=== PATIENT | male | born 1955 | race Caucasian/White ===

== ENCOUNTER 2020-03-06 07:47 | Day surgery (SDC) | payer MEDICARE, OTHER ==
[2020-03-04 10:41] VITALS: BMI 29.9
[~2020-03-06 07:47] MED LIST: LACTATED RINGERS 1,000 ML IV SCH
--- NOTE | 2020-03-06 08:15 | P.GSHP ---
History of Present Illness H&P Date: 03/06/20 Chief Complaint: History of colon polyps 64-year-old male presents today for for colonoscopy. Patient has history of colon polyps. His last colonoscopy the prostate 6 years ago. Past Medical History Past Medical History: Diabetes Mellitus, GERD/Reflux, Hyperlipidemia, Hypertension, Osteoarthritis (OA) Additional Past Medical History / Comment(s): MIGRAINES, History of Any Multi-Drug Resistant Organisms: None Reported Past Surgical History: Tonsillectomy Additional Past Surgical History / Comment(s): colonoscopy Past Anesthesia/Blood Transfusion Reactions: No Reported Reaction Smoking Status: Former smoker - Past Family History Brother(s) Family Medical History: Deep Vein Thrombosis (DVT) Medications and Allergies Home Medications Medication Instructions Recorded Confirmed Type Ascorbic Acid [Vitamin C] 500 mg PO DAILY 02/14/20 03/04/20 History Atorvastatin Calcium [Lipitor] 10 mg PO DAILY 02/14/20 03/04/20 History Omeprazole 20 mg PO DAILY 02/14/20 03/04/20 History Vitamin B Complex 1 each PO DAILY 02/14/20 03/04/20 History Vitamin E 100 unit PO DAILY 02/14/20 03/04/20 History Zinc Gluconate [Zinc] 50 mg PO DAILY 02/14/20 03/04/20 History glipiZIDE [Glucotrol] 5 mg PO AC-BRKFST 02/14/20 03/04/20 History metFORMIN HCL [Glucophage] 500 mg PO BID 02/14/20 03/04/20 History Ibuprofen 200 mg PO Q8H PRN 03/04/20 03/04/20 History Lisinopril [Zestril] 10 mg PO HS 03/04/20 03/04/20 History Allergies Allergy/AdvReac Type Severity Reaction Status Date / Time No Known Allergies Allergy Verified 03/04/20 10:30 Surgical - Exam - General well developed, well nourished - Eyes PERRL - ENT normal pinna - Neck no masses - Respiratory normal expansion - Cardiovascular Rhythm: regular - Abdomen Abdomen: soft, non tender Assessment and Plan Assessment: History: Polyps. We'll perform colonoscopy.
[2020-03-06] MEDS ORDERED: PROPOFOL 10 MG/ML 20 ML VIAL IV ONE (08:21)
[2020-03-06] MEDS ORDERED: LIDOCAINE 1% INJ 10MG/ML (20 ML MDV) ONE (08:21)
[2020-03-06] MEDS ORDERED: GLYCOPYRROLATE 0.2 MG/ML 2 ML VIAL ONE (08:21)
--- NOTE | 2020-03-06 08:37 | P.OP ---
Date of Procedure: 03/06/20 Preoperative Diagnosis: Screening colonoscopy Postoperative Diagnosis: Diverticulosis Procedure(s) Performed: Colonoscopy Anesthesia: MAC Surgeon: Gopi Garza Pathology: none sent Condition: stable Disposition: PACU Description of Procedure: The patient's placed on the endoscopy table in the lateral position. She received IV sedation. Digital rectal exam was performed which revealed no abnormalities. The flexible colonoscope was then placed patient anus and passed throughout the entire colon. The ileocecal valve was visually's. The cecum, ascending and transverse colon appeared normal. In the descending; there is moderate diverticular changes. The scope was then brought back the rectum and this appeared normal. Scope withdrawn for patient.
[2020-03-06 15:27] LABS: Glucose,Whole Blood 132 mg/dL (75-99)
[2020-03-07 08:41] VITALS: BP 137/71; PULSE 62; RESP 16; TEMP 98.5
== END 2020-03-06 09:50 | disposition home or self-care (01) ==
LOC: ORWHC2ENDO 07:47
PROVIDERS: ATTEND Surgery
DX: Z12.11 Encounter for screening for malignant neoplasm of colon (principal); K57.30 Diverticulosis of large intestine without perforation or abscess without bleeding; Z86.010 Personal history of colon polyps; I10 Essential (primary) hypertension; E11.9 Type 2 diabetes mellitus without complications; G43.909 Migraine, unspecified, not intractable, without status migrainosus; K21.9 Gastro-esophageal reflux disease without esophagitis; E78.5 Hyperlipidemia, unspecified; M19.90 Unspecified osteoarthritis, unspecified site; Z87.891 Personal history of nicotine dependence; Z79.84 Long term (current) use of oral hypoglycemic drugs; Z79.899 Other long term (current) drug therapy; Z79.1 Long term (current) use of non-steroidal anti-inflammatories (NSAID); Z90.89 Acquired absence of other organs; Z98.890 Other specified postprocedural states; Z82.49 Family history of ischemic heart disease and other diseases of the circulatory system
CPT/HCPCS: G0105; J2001; J2704; 45378

== ENCOUNTER 2023-12-26 18:09 | Observation (INO) | payer MEDICARE ==
--- NOTE | 2023-12-26 18:59 | ED ---
General Adult HPI - General Source: patient Mode of arrival: ambulatory Limitations: no limitations <Oneil Trejo - Last Filed: 12/26/23 18:59> <Jennifer Lozano - Last Filed: 12/31/23 08:40> - General Chief complaint: GI Bleed Stated complaint: GI Bleed Time Seen by Provider: 12/26/23 18:58 - History of Present Illness Initial comments: 68-year-old male presents to the ED with a chief complaint of rectal bleeding. Patient reports that this has been ongoing for the last 3 days. No rectal pain. No abdominal pain. Patient not on blood thinners. For that she was seen at [facility] had a CT abdomen pelvis completed which revealed no evidence of acute finding. Patient however left AMA prior to completing workup and is presenting here for further evaluation. (Oneil Trejo) 68-year-old male presents emergency department for rectal bleeding pain. States it has been going on for the past 3 days. Originally it was bright red in coloration and now has become dark. He has no abdominal or rectal pain. He does not take any blood thinners. No history of similar in the past. He has had a colonoscopy. He does admit to taking NSAIDs several times per week. No alcohol use. He went into [facility] this morning for laboratory studies and a CT were performed. Patient then left AMA as he was told by [facility] that he had to be transferred. Patient wanted to go by private vehicle. He denies any lightheadedness. No other alleviating, precipitating or modifying factors (Jennifer Lozano) - Related Data Home Medications Medication Instructions Recorded Confirmed glipiZIDE [Glucotrol] 5 mg PO AC-BRKFST 02/14/20 12/27/23 lisinopriL [Zestril] 10 mg PO HS 03/04/20 12/27/23 Atorvastatin [Lipitor] 20 mg PO DAILY 12/27/23 12/27/23 Triamcinolone 0.1% Cream [Kenalog 1 applic TOPICAL BID 12/27/23 12/27/23 0.1% Cream] metFORMIN HCL ER [Glucophage XR] 500 mg PO BID 12/27/23 12/27/23 Allergies Allergy/AdvReac Type Severity Reaction Status Date / Time No Known Allergies Allergy Verified 12/27/23 08:13 Review of Systems ROS Other: All systems not noted in ROS Statement are negative. <Oneil Trejo - Last Filed: 12/26/23 18:59> ROS Other: All systems not noted in ROS Statement are negative. <Jennifer Lozano - Last Filed: 12/31/23 08:40> ROS Statement: Those systems with pertinent positive or pertinent negative responses have been documented in the HPI. Past Medical History Past Medical History: Diabetes Mellitus, GERD/Reflux, Hyperlipidemia, Hypertension, Osteoarthritis (OA) Additional Past Medical History / Comment(s): MIGRAINES, History of Any Multi-Drug Resistant Organisms: None Reported Past Surgical History: Tonsillectomy Additional Past Surgical History / Comment(s): colonoscopy Past Anesthesia/Blood Transfusion Reactions: No Reported Reaction Past Psychological History: No Psychological Hx Reported Smoking Status: Never smoker Past Alcohol Use History: Rare Past Drug Use History: Marijuana - Past Family History Brother(s) Family Medical History: Deep Vein Thrombosis (DVT) <Oneil Trejo - Last Filed: 12/26/23 18:59> General Exam Limitations: no limitations <Oneil Trejo - Last Filed: 12/26/23 18:59> General appearance: alert, in no apparent distress Head exam: Present: atraumatic, normocephalic, normal inspection Eye exam: Present: normal appearance, PERRL, EOMI. Absent: scleral icterus, conjunctival injection, periorbital swelling ENT exam: Present: normal exam, mucous membranes moist Neck exam: Present: normal inspection. Absent: tenderness, meningismus, lympha denopathy Respiratory exam: Present: normal lung sounds bilaterally. Absent: respiratory distress, wheezes, rales, rhonchi, stridor Cardiovascular Exam: Present: regular rate, normal rhythm, normal heart sounds. Absent: systolic murmur, diastolic murmur, rubs, gallop, clicks GI/Abdominal exam: Present: soft, normal bowel sounds. Absent: distended, tenderness, guarding, rebound, rigid Extremities exam: Present: normal inspection, full ROM, normal capillary refill. Absent: tenderness, pedal edema, joint swelling, calf tenderness Back exam: Present: normal inspection Neurological exam: Present: alert, oriented X3, CN II-XII intact Psychiatric exam: Present: normal affect, normal mood Skin exam: Present: warm, dry, intact, normal color. Absent: rash <Jennifer Lozano - Last Filed: 12/31/23 08:40> - General Exam Comments Initial Comments: Visual Physical Exam Vital signs reviewed General: Well-appearing, nontoxic, no acute distress. Head: Normocephalic, atraumatic Eyes: PERRLA, EOMI ENT: Airway patent Chest: Nonlabored breathing Skin: No visual rash, normal skin tone Neuro: Alert and oriented 3 Musculoskeletal: No gross abnormalities (Oneil Trejo) Course Vital Signs 12/26/23 12/27/23 12/27/23 18:36 00:21 01:31 Temperature 97.8 F 98.2 F Pulse Rate 101 H 76 77 Pulse Rate [ Green Coffee Blender ] Respiratory 18 18 15 Rate Blood Pressure 165/80 187/101 155/90 Blood Pressure [Left Arm] Blood Pressure [Right Arm] O2 Sat by Pulse 98 96 97 Oximetry 12/27/23 12/27/23 12/27/23 02:46 09:19 14:43 Temperature 98.2 F 98.0 F Pulse Rate 72 Pulse Rate [ 81 83 Green Coffee Blender ] Respiratory 15 15 16 Rate Blood Pressure 142/106 Blood Pressure [Left Arm] Blood Pressure 169/90 161/101 [Right Arm] O2 Sat by Pulse 97 96 Oximetry 12/27/23 12/27/23 14:50 16:10 Temperature Pulse Rate Pulse Rate [ Green Coffee Blender ] Respiratory Rate Blood Pressure Blood Pressure 144/84 148/86 [Left Arm] Blood Pressure 151/82 [Right Arm] O2 Sat by Pulse Oximetry Medical Decision Making <Oneil Trejo - Last Filed: 12/26/23 18:59> - Lab Data Result diagrams: 12/28/23 05:22 12/28/23 05:22 <Jennifer Lozano - Last Filed: 12/31/23 08:40> - Medical Decision Making Quicknote portion performed. Signed Oneil Trejo PA-C (Oneil Trejo) Was pt. sent in by a medical professional or institution ([facility], GAUGE MAKER APPRENTICE, urgent care, hospital, or [place] health care facility...) When possible be specific @ -Patient was seen and evaluated at [facility]. It was then recom mended that the patient be seen at a different facility Did you speak to anyone other than the patient for history (EMS, parent, family, police, friend...)? What history was obtained from this source @ -No Did you review nursing and triage notes (agree or disagree)? Why? @ -I reviewed and agree with nursing and triage notes Were old charts reviewed (outside hosp., previous admission, EMS record, old EKG, old radiological studies, urgent care reports/EKG's, [place] health care facility records)? Report findings @ -I reviewed the paperwork that the patient brought with him from [facility] Differential Diagnosis (chest pain, altered mental status, abdominal pain women, abdominal pain men, vaginal bleeding, weakness, fever, dyspnea, syncope, headache, dizziness, GI bleed, back pain, seizure, CVA, palpatations, mental health, musculoskeletal)? @ -Differential GI Bleed: Esophageal varices, aortoenteric fistula, Josie-White, gastritis, peptic ulcer disease, diverticulosis, inflammatory bowel disease, hemorrhoids, fissure, colitis, malignancy, Meckels diverticulum, this is not meant to be an all- inclusive list. EKG interpreted by me (3pts min.). @ -Not done X-rays interpreted by me (1pt min.). @ -None done CT interpreted by me (1pt min.). @ -None done U/S interpreted by me (1pt. min.). @ -None done What testing was considered but not performed or refused? (CT, X-rays, U/S, labs)? Why? @ -None What meds were considered but not given or refused? Why? @ -None Did you discuss the management of the patient with other professionals (professionals i.e. , PA, GAUGE MAKER APPRENTICE, lab, RT, psych nurse, case management social worker, motivational speaker, teacher, officer captain, rn case mgr)? Give summary @ -Spoke with Brittaney from [facility] Was smoking cessation discussed for >3mins.? @ -No Was critical care preformed (if so, how long)? @ -No Were there social determinants of health that impacted care today? How? (Homele ssness, low income, unemployed, alcoholism, drug addiction, transportation, low edu. Level, literacy, decrease access to med. care, [place] [facility] [place], rehab)? @ -No Was there de-escalation of care discussed even if they declined (Discuss DNR or withdrawal of care, Hospice)? DNR status @ -No What co-morbidities impacted this encounter? (DM, HTN, Smoking, COPD, CAD, Cancer, CVA, ARF, Chemo, Hep., AIDS, mental health diagnosis, sleep apnea, morbid obesity)? @ -None Was patient admitted / discharged? Hospital course, mention meds given and route, prescriptions, significant lab abnormalities, going to OR and other pertinent info. @ -Upon arrival patient was seen and evaluated in room 26. Thorough history and physical exam was performed. I did review patient's transfer paperwork. He was occult positive there. CT demonstrated colonic diverticulosis. Patient presents to our emergency department for GI consult. He will be admitted to [facility]. Spoke with Brittaney who agreed to admission. GI will be consulted Undiagnosed new problem with uncertain prognosis? @ -Yes Drug Therapy requiring intensive monitoring for toxicity (Heparin, Nitro, Insulin, Cardizem)? @ -No Were any procedures done? @ -No Diagnosis/symptom? @ -Acute hematochezia, suspected lower GI bleed, colonic diverticulosis Acute, or Chronic, or Acute on Chronic? @ -Acute Uncomplicated (without systemic symptoms) or Complicated (systemic symptoms)? @ -Complicated Side effects of treatment? @ -No Exacerbation, Progression, or Severe Exacerbation? @ -No Poses a threat to life or bodily function? How? (Chest pain, USA, NM, pneumonia, PE, COPD, DKA, ARF, appy, cholecystitis, CVA, Diverticulitis, Homicidal, Suicidal, threat to staff... and all critical care pts) @ -No (Jennifer Lozano) Disposition <Oneil Trejo - Last Filed: 12/26/23 18:59> Is patient prescribed a controlled substance at d/c from ED?: No Time of Disposition: 00:13 <Jennifer Lozano - Last Filed: 12/31/23 08:40> Clinical Impression: Hematochezia, GI bleed Disposition: ADMITTED IP TO THIS HOSP
[2023-12-27] MEDS ORDERED: NALOXONE 0.4 MG/ML 1 ML VIAL IV PRN (00:14)
[2023-12-27 00:46] LABS: Basophils # (A) 0.2 k/uL (0-0.2); Basophils % (A) 1 %; Eosinophils # (A) 0.3 k/uL (0-0.7); Eosinophils % (A) 2 %; HCT 38.9 % (39.0-53.0); HGB 12.9 gm/dL (13.0-17.5); Lymphocytes # (A) 4.5 k/uL (1.0-4.8); Lymphocytes % (A) 33 %; MCH 28.7 pg (25.0-35.0); MCHC 33.1 g/dL (31.0-37.0); MCV 86.4 fL (80.0-100.0); Mean Platelet Volume 10.1; Monocytes # (A) 0.7 k/uL (0-1.0); Monocytes % (A) 5 %; Neutrophils # (A) 7.6 k/uL (1.3-7.7); Neutrophils % (A) 56 %; Platelet Count 279 k/uL (150-450); RDW 13.2 % (11.5-15.5); WBC 13.5 k/uL (3.8-10.6)
[2023-12-27 01:02] LABS: ALT 38 U/L (4-49); AST 54 U/L (17-59); African American GFR (CKD) >90 (>60 ml/min/1.73 sqM); Albumin 4.8 g/dL (3.5-5.0); Alkaline Phosphatase 37 U/L (38-126); Anion Gap 9 mmol/L; Blood Urea Nitrogen 17 mg/dL (9-20); Calcium 9.5 mg/dL (8.4-10.2); Carbon Dioxide 22 mmol/L (22-30); Chloride 104 mmol/L (98-107); Glucose 143 mg/dL (74-99); Non-African American GFR(CKD) >90 (>60 ml/min/1.73 sqM); Sodium 135 mmol/L (137-145); Total Bilirubin 1.1 mg/dL (0.2-1.3); Total Protein 7.8 g/dL (6.3-8.2)
[2023-12-27 01:10] LABS: Potassium 5.7 mmol/L (3.5-5.1)
[2023-12-27] MEDS ORDERED: DEXTROSE 50% SYRINGE 50 ML IVP PRN ×2 (09:01)
[2023-12-27] MEDS: ATORVASTATIN 20 MG TAB PO SCH (09:22)
[2023-12-27] MEDS: SODIUM ZIRCONIUM CYCLOSILICATE 10 GM PACKET PO SCH (09:23)
[2023-12-27] MEDS: TRIAMCINOLONE 0.1% CREAM 80 GM TUBE TOPICAL SCH (09:25)
[2023-12-27 12:06] LABS: Glucose,Whole Blood 166 mg/dL (70-110)
[2023-12-27] MEDS: INSULIN ASPART (NovoLOG) 100 UNIT/ML VIAL SQ SCH (12:14)
--- NOTE | 2023-12-27 15:49 | P.HPIM ---
History of Present Illness H&P Date: 12/27/23 Chief Complaint: Blood per rectum This is a 68-year-old patient, follows Dr. Brambila. Chronic stable medical conditions include diabetes, GERD, hypertension, hyperlipidemia, osteoarthritis. 4 days ago there is on Tuesday patient had a piece 4 episodes of eric red blood to her rectum. Not really mixed with stool. The following day on Tuesday patient had to 3 episodes. Then on Tuesday also had to 3 episodes. Yesterday had 1 more episode. No abdominal pain. No nausea vomiting. No fever. Patient had prior colonoscopy showing diverticulosis. Decided to come in. Does feel slightly tired. Review of systems: GEN.: Tired EYES: None HEENT: None NECK: None RESPIRATORY: None CARDIOVASCULAR: None GASTROINTESTINAL: None as above Genitourinary: None MUSCULOSKELETAL: Pain. LYMPHATICS: None HEMATOLOGICAL: None PSYCHIATRY: None NEUROLOGICAL: None Social history: No alcohol. Lives with [employer]. 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 Patient smoked for 30 years stopped in 1996. Occasional marijuana use Physical examination: VITAL SIGNS: 98, 81, 15, 169/90, 97% room air GENERAL: BMI 30, reclining bed awake not in distress. EYES: Pupils equal. Conjunctiva abraham l. HEENT: External appearance of nose and ears normal, oral cavity grossly normal. NECK: JVD not raised; masses not palpable. HEART: First and second heart sounds are normal; no edema. LUNGS: Respiratory rate normal; clear to auscultation. ABDOMEN: Soft, nontender, liver spleen not palpable, no masses palpable. PSYCH: Alert and oriented x3; mood and affect abraham l. MUSCULOSKELETAL:No Clubbing/cyanosis;muscles-grossly intact. OA NEUROLOGICAL: Cranial nerves grossly intact; no facial asymmetry, power and sensation grossly intact. LYMPHATICS: No lymph nodes palpable in the axilla and neck INVESTIGATIONS, reviewed in the clinical context: December 27, 2023: White count 13.5 hemoglobin 12.9 platelets 279 sodium 135 potassium 5.7 BUN 17 creatinine 0.77 Assessment plan: --Acute lower GI bleed to recurrent for last 4 days. Multiple episodes of fresh red blood. Likely diverticular in nature. Oftentimes these are self-limiting though frequency and amount can vary. Given that patient's had several episodes need to be followed closely both for hemoglobin and any and hemodynamic insta bility. Colonoscopy by Dr Garza in 2019 had shown diverticulosis Follow H&H. Consult GI. Clear liquid diet -Diabetes mellitus type 2 on oral hypoglycemic Hold Glucotrol and Glucophage. Follow Accu-Cheks. Sliding scale. -Essential hypertension Hold lisinopril for now because of hyperkalemia -Hyperlipidemia Lipitor 20 mg a day -Hyperkalemia. Hold lisinopril Lokelma. Low potassium diet -Full code Care was discussed with the patient. Past Medical History Past Medical History: Diabetes Mellitus, GERD/Reflux, Hyperlipidemia, Hyperten tiago, Osteoarthritis (OA) Additional Past Medical History / Comment(s): MIGRAINES, History of Any Multi-Drug Resistant Organisms: None Reported Past Surgical History: Tonsillectomy Additional Past Surgical History / Comment(s): colonoscopy Past Anesthesia/Blood Transfusion Reactions: No Reported Reaction Past Psychological History: No Psychological Hx Reported Smoking Status: Never smoker Past Alcohol Use History: Rare Past Drug Use History: Marijuana - Past Family History Brother(s) Family Medical History: Deep Vein Thrombosis (DVT) Medications and Allergies Home Medications Medication Instructions Recorded Confirmed Type glipiZIDE [Glucotrol] 5 mg PO AC-BRKFST 02/14/20 12/27/23 History lisinopriL [Zestril] 10 mg PO HS 03/04/20 12/27/23 History Atorvastatin [Lipitor] 20 mg PO DAILY 12/27/23 12/27/23 History Triamcinolone 0.1% Cream [Kenalog 1 applic TOPICAL BID 12/27/23 12/27/23 History 0.1% Cream] metFORMIN HCL ER [Glucophage XR] 500 mg PO BID 12/27/23 12/27/23 History Allergies Allergy/AdvReac Type Severity Reaction Status Date / Time No Known Allergies Allergy Verified 12/27/23 08:13 Physical Exam Vitals: Vital Signs Temp Pulse Pulse Resp BP BP BP 12/27/23 14:50 144/84 12/27/23 14:43 83 16 161/101 12/27/23 09:19 98.0 F 81 15 169/90 12/27/23 02:46 98.2 F 72 15 142/106 12/27/23 01:31 77 15 155/90 12/27/23 00:21 98.2 F 76 18 187/101 12/26/23 18:36 97.8 F 101 H 18 165/80 Pulse Ox 12/27/23 14:50 12/27/23 14:43 96 12/27/23 09:19 97 12/27/23 02:46 12/27/23 01:31 97 12/27/23 00:21 96 12/26/23 18:36 98 Results CBC & Chem 7: 12/27/23 00:21 12/27/23 00:21 Labs: Abnormal Lab Results - Last 24 Hours (Table) 12/27/23 12/27/23 12/27/23 Range/Units 00:21 00:21 12:04 WBC 13.5 H (3.8-10.6) k/uL Hgb 12.9 L (13.0-17.5) gm/dL Hct 38.9 L (39.0-53.0) % Sodium 135 L (137-145) mmol/L Potassium 5.7 H (3.5-5.1) mmol/L Glucose 143 H (74-99) mg/dL POC Glucose (mg/dL) 166 H (70-110) mg/dL Alkaline Phosphatase 37 L (38-126) U/L
--- NOTE | 2023-12-27 16:31 | P.CONS ---
History of Present Illness - Reason for Consult Consult date: 12/27/23 Hematochezia Requesting physician: Jennifer Lozano - Chief Complaint Rectal bleeding - History of Present Illness This is a pleasant 68-year-old male who presented to the emergency department yesterday evening with concerns of rectal bleeding. Patient had initially gone to [facility] and was then sent here for further evaluation. He had a CT of the abdomen and pelvis that reportedly showed no acute findings. States that he has had bright red blood mixed with his stool since Tuesday. States he had 3- 4 bowel movements Tuesday 2-3 Tuesday and they have been decreasing since. States that initially he had bright red blood mixed in with his stool which he states his stool was formed. He denies any pain in the rectum or abdominal pain associated with the rectal bleeding. States that he has been in proving and did not have a bowel movement since yesterday. Which the bleeding was turning a little bit darker. He denies any nausea or vomiting. He denies any use of anticoagulation. Last colonoscopy was in [address] Garza with findings of diverticulosis however he did have a colonoscopy with Dr. Porras in 2013 reporting multiple colon polyps status post polypectomy with biopsy showing tubular adenoma with recommendation for follow-up within 6 months to a year. Patient states he had not followed up at that time. Hemoglobin is stable at 12.9. Review of Systems REVIEW OF SYSTEMS: CARDIOPULMONARY: No chest pain or shortness of breath. Gastrointestinal: No abdominal pain or rectal pain. No nausea or vomiting. No hematemesis, coffee-ground emesis. Patient reports bright red bloody bowel movements. Bleeding only with bowel movement. GENITOURINARY: No dysuria or hematuria. MUSCULOSKELETAL: Reports normal range of motion. SKIN: No rashes. No jaundice. ENDOCRINE: No chills, fevers. No excessive weight gain or loss. No polydipsia or polyuria. PSYCHIATRIC: Unremarkable. NEUROLOGY: No change in mental status. Denies dizziness, headache. ENT: Vision unremarkable. CONSTITUTIONAL: No recent weight loss. No fever, chills, night sweats. Past Medical History Past Medical History: Diabetes Mellitus, GERD/Reflux, Hyperlipidemia, Hypertension, Osteoarthritis (OA) Additional Past Medical History / Comment(s): MIGRAINES, History of Any Multi-Drug Resistant Organisms: None Reported Past Surgical History: Tonsillectomy Additional Past Surgical History / Comment(s): colonoscopy Past Anesthesia/Blood Transfusion Reactions: No Reported Reaction Past Psychological History: No Psychological Hx Reported Smoking Status: Never smoker Past Alcohol Use History: Rare Past Drug Use History: Marijuana - Past Family History Brother(s) Family Medical History: Deep Vein Thrombosis (DVT) Medications and Allergies Home Medications Medication Instructions Recorded Confirmed Type glipiZIDE [Glucotrol] 5 mg PO AC-BRKFST 02/14/20 12/27/23 History lisinopriL [Zestril] 10 mg PO HS 03/04/20 12/27/23 History Atorvastatin [Lipitor] 20 mg PO DAILY 12/27/23 12/27/23 History Triamcinolone 0.1% Cream [Kenalog 1 applic TOPICAL BID 12/27/23 12/27/23 History 0.1% Cream] metFORMIN HCL ER [Glucophage XR] 500 mg PO BID 12/27/23 12/27/23 History Allergies Allergy/AdvReac Type Severity Reaction Status Date / Time No Known Allergies Allergy Verified 12/27/23 08:13 Physical Exam Vitals: Vital Signs Temp Pulse Resp BP Pulse Ox 12/27/23 02:46 98.2 F 72 15 142/106 12/27/23 01:31 77 15 155/90 97 12/27/23 00:21 98.2 F 76 18 187/101 96 12/26/23 18:36 97.8 F 101 H 18 165/80 98 Intake and Output 12/26/23 12/27/23 12/27/23 22:59 06:59 14:59 Other: Weight 97.522 kg General appearance: The patient is alert, oriented, appears in no acute distress. HET: Head is normocephalic and atraumatic. Conjunctiva pink. Sclera anicteric. Neck: Supple without lymphadenopathy. Trachea midline. Heart: Regular. Lungs: Equal expansion, normal respiratory effort. Abdomen: Soft, nontender, nondistended. Skin: No rashes. No jaundice. Extremities: Normal skin color and turgor. No pedal edema. Neurological: No focal deficits. Alert and oriented x3. Results CBC & Chem 7: 12/27/23 00:21 12/27/23 00:21 Labs: Abnormal Lab Results - Last 24 Hours (Table) 12/27/23 12/27/23 Range/Units 00:21 00:21 WBC 13.5 H (3.8-10.6) k/uL Hgb 12.9 L (13.0-17.5) gm/dL Hct 38.9 L (39.0-53.0) % Sodium 135 L (137-145) mmol/L Potassium 5.7 H (3.5-5.1) mmol/L Glucose 143 H (74-99) mg/dL Alkaline Phosphatase 37 L (38-126) U/L Assessment and Plan (1) Hematochezia Narrative/Plan: 68-year-old male presenting with 4 days of bloody bowel movements. States they have been bright red mixed with his stool since Tuesday. Had 3-4 episodes Tuesday 2-3 on Tuesday and has since been slowing down. He was initially seen at an outside facility and came here for further GI evaluation. Apparently had an outside CT of the abdomen pelvis that showed no acute findings. Bleeding is not associated with any abdominal pain. He has had a history colonoscopy in 2019 with diverticulosis and previous to that colonoscopy in 2013 with multiple colon polyps status post polypectomy. Unclear etiology of hematochezia but with patient's history of colon polyps would recommend inpatient colonoscopy. Current Visit: Yes Status: Acute Code(s): K92.1 - MELENA SNOMED Code(s): 242233209 Plan: 1. Continue symptomatic and supportive care 2. Daily CBC, transfuse for hemoglobin less than 7 3. Clear liquid diet n.p.o. after midnight 4. Bowel prep this evening 5. Plan for colonoscopy tomorrow Thank you for this consultation, we will continue to follow. Dr. Denise Porras I agree with the dictator's note, documented as a scribe by Valentine Coleman.
[2023-12-27 20:40] LABS: Glucose,Whole Blood 151 mg/dL (70-110)
[2023-12-27] MEDS ORDERED: lisinopriL 10 MG TAB PO SCH (21:00)
[2023-12-27] MEDS: PEG 3350 (236 GM/BTL) + LYTES 4,000 ML BOTTLE PO ONE (21:17)
[2023-12-28 06:07] LABS: Basophils # (A) 0.1 k/uL (0-0.2); Basophils % (A) 1 %; Eosinophils # (A) 0.2 k/uL (0-0.7); Eosinophils % (A) 2 %; HCT 37.1 % (39.0-53.0); HGB 12.4 gm/dL (13.0-17.5); Lymphocytes # (A) 2.5 k/uL (1.0-4.8); Lymphocytes % (A) 26 %; MCH 28.9 pg (25.0-35.0); MCHC 33.4 g/dL (31.0-37.0); MCV 86.3 fL (80.0-100.0); Mean Platelet Volume 10.1; Monocytes # (A) 0.6 k/uL (0-1.0); Monocytes % (A) 6 %; Neutrophils # (A) 6.2 k/uL (1.3-7.7); Neutrophils % (A) 63 %; Platelet Count 226 k/uL (150-450); RDW 13.1 % (11.5-15.5); WBC 9.8 k/uL (3.8-10.6)
[2023-12-28 06:23] LABS: African American GFR (CKD) >90 (>60 ml/min/1.73 sqM); Anion Gap 9 mmol/L; Blood Urea Nitrogen 15 mg/dL (9-20); Calcium 9.5 mg/dL (8.4-10.2); Carbon Dioxide 27 mmol/L (22-30); Chloride 102 mmol/L (98-107); Glucose 168 mg/dL (74-99); Non-African American GFR(CKD) >90 (>60 ml/min/1.73 sqM); Potassium 4.2 mmol/L (3.5-5.1); Sodium 138 mmol/L (137-145)
[2023-12-28 06:31] LABS: Glucose,Whole Blood 169 mg/dL (70-110)
[2023-12-28 09:52] VITALS: RESP 18
[2023-12-28 11:51] LABS: Glucose,Whole Blood 145 mg/dL (70-110)
[2023-12-28] MEDS ORDERED: PROPOFOL 10 MG/ML 20 ML VIAL IV ONE (12:59)
[2023-12-28] MEDS ORDERED: LIDOCAINE 1% INJ 10MG/ML (20 ML MDV) ONE (12:59)
[2023-12-28] MEDS: IV FLUID CONTINUATION 1,000 ML IV ONE (13:01)
--- NOTE | 2023-12-28 13:27 | P.PCN ---
Date of Procedure: 12/28/23 Procedure(s) Performed: BRIEF HISTORY: Patient is a 68-year-old pleasant white male admitted to hospital with acute lower GI bleed. He had several episodes of bright red blood per rectum for the last 3 days duration. Hemoglobin is 12.4 g/dL. He is scheduled for colonoscopy evaluate further. PROCEDURE PERFORMED: Colonoscopy with biopsy and snare polypectomy PREOPERATIVE DIAGNOSIS: Acute lower GI bleed. IV sedation per Anesthesia. PROCEDURE: After informed consent was obtained, the patient, was brought into the endoscopy unit. IV sedation was administered by Anesthesia under continuous monitoring. Digital rectal examination was normal. Initially the Olympus CF-160 flexible video colonoscope was then inserted in the rectum, gradually advanced into the cecum without any difficulty. Careful examination was performed as the scope was gradually being withdrawn. Ileocecal valve and the appendiceal orifice were visualized and appeared normal. Prep was excellent. No active bleeding noted. Mucosa of the cecum, ascending colon, appeared normal. In the transverse colon there was a 5 mm polyp was removed by cold biopsy. Transverse colon, normal. The descending colon there was a 1 cm polyp removed by snare polypectomy. In the sigmoid colon there was a 3 mm polyp removed by snare humble ypectomy. Moderate sigmoid diverticulosis seen. Rest of the descending colon, sigmoid colon, and rectum appeared normal. Scattered sigmoid diverticulosis. Retroflexion was performed in the rectum and no lesions were seen. The patient tolerated the procedure well. IMPRESSION: 5 mm transverse colon polyp status post removal by cold biopsy. 1 cm descending colon polyp s/p snare polypectomy 3 mm sigmoid colon polyp status post cold biopsy Sigmoid diverticulosis. RECOMMENDATIONS: Findings of this examination were discussed with the patient as well is his family. Most likely had a diverticular bleed that has spontaneously resolved. He was advised to follow the biopsy results. Advance diet as tolerated. He can be discharged home today with outpatient follow-up as needed..
[2023-12-28 16:05] VITALS: BP 175/76; PULSE 90; TEMP 98
--- NOTE | 2023-12-28 20:48 | P.DS ---
Providers Date of admission: 12/27/23 00:21 Expected date of discharge: 12/28/23 Attending physician: Jeffery Rojas Consults: 12/27/23 00:14 Consult Physician Urgent Consulting Provider: Alannah Porras Consult Reason/Comments: acute hematochezia, lower gi bleed Do you want consulting provider notified?: Yes Primary care physician: [facility] Course: Chief Complaint: Blood per rectum This is a 68-year-old patient, follows Dr. Brambila. Chronic stable medical conditions include diabetes, GERD, hypertension, hyperlipidemia, osteoarthritis. 4 days ago there is on Tuesday patient had a piece 4 episodes of eric red blood to her rectum. Not really mixed with stool. The following day on Tuesday patient had to 3 episodes. Then on Tuesday also had to 3 episodes. Yesterday had 1 more episode. No abdominal pain. No nausea vomiting. No fever. Patient had prior colonoscopy showing diverticulosis. Decided to come in. Does feel s lightly tired. December 27: Patient had normal bowel movements since yesterday. Had bowel preparation yesterday. Some dark stuff came out. Then cleared up to brown stool. Underwent colonoscopy today. Some broad-based colon polyp removed. Diverticulosis noticed. Doing well otherwise. Cleared by Dr. Porras for discharge. Social history: No alcohol. Lives with [employer]. 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 Patient smoked for 30 years stopped in 1996. Occasional marijuana use Physical examination: VITAL SIGNS: 98, 90, 18, 135/79, 98% room air GENERAL: BMI 30, reclining bed awake not in distress. EYES: Pupils equal. Conjunctiva abraham l. HEENT: External appearance of nose and ears normal, oral cavity grossly normal. NECK: JVD not raised; masses not palpable. HEART: First and second heart sounds are normal; no edema. LUNGS: Respiratory rate normal; clear to auscultation. ABDOMEN: Soft, nontender, liver spleen not palpable, no masses palpable. PSYCH: Alert and oriented x3; mood and affect abraham l. MUSCULOSKELETAL:No Clubbing/cyanosis;muscles-grossly intact. OA INVESTIGATIONS, reviewed in the clinical context: December 27: White count 9.8 hemoglobin 12.4 platelets 226 potassium 4.2 creatinine 0.78 December 27, 2023: White count 13.5 hemoglobin 12.9 platelets 279 sodium 135 potassium 5.7 BUN 17 creatinine 0.77 Assessment plan: --Acute lower GI bleed to recurrent for last 4 days. Multiple episodes of fresh red blood.: Likely source colonic diverticulosis Colonoscopy by Dr Garza in 2019 had shown diverticulosis Colonoscopy by Dr. Denise Porras: Polyps removed. Diverticulosis. No active bleeding noticed. -Diabetes mellitus type 2 on oral hypoglycemic Hold Glucotrol and Glucophage. Follow Accu-Cheks. Sliding scale. -Essential hypertension -Hyperlipidemia Lipitor 20 mg a day -Hyperkalemia. Corrected -Full code Disposition: Home Past Medical History Past Medical History: Diabetes Mellitus, GERD/Reflux, Hyperlipidemia, Hypertension, Osteoarthritis (OA) Additional Past Medical History / Comment(s): MIGRAINES, History of Any Multi-Drug Resistant Organisms: None Reported Past Surgical History: Tonsillectomy Additional Past Surgical History / Comment(s): colonoscopy Past Anesthesia/Blood Transfusion Reactions: No Reported Reaction Past Psychological History: No Psychological Hx Reported Smoking Status: Never smoker Past Alcohol Use History: Rare Past Drug Use History: Marijuana Plan - Discharge Summary Discharge Rx Participant: No New Discharge Prescriptions: Continue glipiZIDE [Glucotrol] 5 mg PO AC-BRKFST lisinopriL [Zestril] 10 mg PO HS metFORMIN HCL ER [Glucophage XR] 500 mg PO BID Triamcinolone 0.1% Cream [Kenalog 0.1% Cream] 1 applic TOPICAL BID Atorvastatin [Lipitor] 20 mg PO DAILY Discharge Medication List glipiZIDE [Glucotrol] 5 mg PO AC-BRKFST 02/14/20 [History] lisinopriL [Zestril] 10 mg PO HS 03/04/20 [History] Atorvastatin [Lipitor] 20 mg PO DAILY 12/27/23 [History] Triamcinolone 0.1% Cream [Kenalog 0.1% Cream] 1 applic TOPICAL BID 12/27/23 [History] metFORMIN HCL ER [Glucophage XR] 500 mg PO BID 12/27/23 [History] Follow up Appointment(s)/Referral(s): Irasema Cabrera NPC [Family Provider] - 1-2 Days Alannah Porras MD [STAFF PHYSICIAN] - 2 Weeks Activity/Diet/Wound Care/Special Instructions: *Glucometer is at [facility] - have them deliver at discharge
== END 2023-12-28 15:40 | disposition home or self-care (01) ==
LOC: EC 18:09 → 4SSUR 12-27 00:21 → OBSVTOIN 12-27 00:21 → INTOOBSV 12-27 00:21 → 4SSUR 12-27 07:27 → UNDODISOB 12-28 15:40 → UNDODISIN 12-28 15:40
PROVIDERS: ADMIT Hospitalist; ATTEND Hospitalist
PROC: 0DBM8ZX Excision of Descending Colon, Via Natural or Artificial Opening Endoscopic, Diagnostic (ICD-10-PCS; principal; 2023-12-28 11:30)
PROC: 0DBL8ZX Excision of Transverse Colon, Via Natural or Artificial Opening Endoscopic, Diagnostic (ICD-10-PCS; principal; 2023-12-28 11:30)
PROC: 0DBN8ZX Excision of Sigmoid Colon, Via Natural or Artificial Opening Endoscopic, Diagnostic (ICD-10-PCS; principal; 2023-12-28 11:30)
DX: K62.5 Hemorrhage of anus and rectum (principal); K57.90 Diverticulosis of intestine, part unspecified, without perforation or abscess without bleeding; D12.5 Benign neoplasm of sigmoid colon; D12.3 Benign neoplasm of transverse colon; K63.5 Polyp of colon; E87.5 Hyperkalemia; I10 Essential (primary) hypertension; E78.5 Hyperlipidemia, unspecified; E11.9 Type 2 diabetes mellitus without complications; G43.909 Migraine, unspecified, not intractable, without status migrainosus; K21.9 Gastro-esophageal reflux disease without esophagitis; M19.90 Unspecified osteoarthritis, unspecified site; Z79.84 Long term (current) use of oral hypoglycemic drugs; Z79.899 Other long term (current) drug therapy; Z86.010 Personal history of colon polyps; Z87.891 Personal history of nicotine dependence
CPT/HCPCS: 99285; 88305; 80053; 80048; 85025 ×2; 45380; 45385; G0378 ×2; J2001; J2704